=== PATIENT | female | born 1995 | race Two or more races ===

== ENCOUNTER 2024-10-20 18:32 | Emergency (ER) | payer MEDICAID, SELFPAY ==
--- NOTE | 2024-10-20 18:37 | EKG_ITS ---
[facility] (Formerly [facility]) Test Date: 2024-10-20 Pat Name: OTONIEL ROSS Department: Room: - Gender: Female Library Circulation Clerk: : 1995 Requested By: Mariya Carpio Order Number: [id number] Reading MD: Mariya Carpio Measurements Intervals [place] Rate: 79 P: 75 NC: 134 QRS: 82 QRSD: 91 T: 56 QT: 370 QTc: 426 Interpretive Statements SINUS RHYTHM POSSIBLE LEFT ATRIAL ENLARGEMENT [-0.1mV P WAVE IN V1/V2] Compared to ECG 11/30/2018 09:16:28 Sinus tachycardia no longer present Short NC interval no longer present T-wave abnormality no longer present /store/S0/[id number].pdf
[2024-10-20 18:54] VITALS: BP 121/82; PULSE 91; RESP 19; TEMP 36.9; O2SAT 99; BMI 25.4
--- NOTE | 2024-10-20 18:56 | XR_ITS ---
Examination: PA chest single view TECHNIQUE: Upright PA chest single view Exam date and time: October 20, 2024 1907 hours INDICATIONS: Onset chest pain beginning 3 days ago. FINDINGS: Normal heart size Lungs are clear. The osseous structures are intact IMPRESSION: No active disease
--- NOTE | 2024-10-20 18:57 | PD.EDRME ---
Rapid Medical Screening Exam [facility] Arrival date/time: 10/20/24 18:32 29F with history of psych presents to ED with 3 days of worsening L CP w/o fall/trauma and URI symptoms. Patient denies SOB. Chief Complaint: Chest Pain Vital signs: Vital Signs Temperature 98.4 F 10/20/24 18:54 Pulse Rate 91 10/20/24 18:54 Respiratory Rate 19 10/20/24 18:54 Blood Pressure 121/82 10/20/24 18:54 Pulse Oximetry (%) 99 10/20/24 18:54 Oxygen Delivery Method Room Air 10/20/24 18:54
[2024-10-20 19:37] LABS: Basophils # (Auto) 0.1 Thou/mm3 (0.0-0.2); Basophils % (Auto) 1 % (0-2.5); Eosinophils # (Auto) 0.1 Thou/mm3 (0.0-0.5); Eosinophils % (Auto) 1 % (0-10); Hematocrit 42.1 % (36.0-46.0); Hemoglobin 14.3 g/dL (12.0-16.0); Immature Granulocytes % (Auto) 0 % (0-0); Immature Granulocytes Auto 0.02 Thou/mm3 (0.00-0.00); Lymphocytes # (Auto) 3.4 Thou/mm3 (1.0-4.8); Lymphocytes % (Auto) 35 % (10-50); Mean Corpuscular Hemoglobin 30.9 pg (25.0-35.0); Mean Corpuscular Volume 91 fL (80-100); Monocytes # (Auto) 0.7 Thou/mm3 (0.0-0.8); Monocytes % (Auto) 7 % (0-12); Neutrophils # (Auto) 5.4 Thou/mm3 (1.8-7.7); Neutrophils % (Auto) 56 % (37-80); Nucleated Red Blood Cell % 0 /100 WBC (0); Platelet Count 395 Thou/mm3 (140-440); RDW Standard Deviation 40.9 fL (36.4-46.3); Red Blood Count 4.63 Miln/mm3 (4.00-5.20); White Blood Count 9.7 Thou/mm3 (3.6-11.0)
[2024-10-20 19:51] LABS: Alanine Aminotransferase 13 U/L (10-49); Albumin, Serum 5.1 gm/dL (3.5-5.0); Albumin/Globulin Ratio 1.8 (1.2-2.2); Alkaline Phosphatase 67 U/L (46-116); Anion Gap 8 (7-16); Aspartate Amino Transferase 11 U/L (0-34); BUN/Creatinine Ratio 11 Ratio (12-20); Bilirubin,Total 0.8 mg/dL (0.3-1.2); Blood Urea Nitrogen 9 mg/dL (9-23); Carbon Dioxide 25.6 mMol/L (20.0-31.0); Chloride 102 mMol/L (98-107); Creatinine (Component) 0.8 mg/dL (0.6-1.3); Estimated Creatinine Clearance 90.5 mL/min (>60); Globulin 2.8 gm/dL (2.3-3.5); Glucose 78 mg/dL (74-106); Osmolality,Calculated 269 (275-295); Potassium 4.4 mMol/L (3.4-5.1); Sodium 136 mMol/L (136-145); Total Protein 7.9 gm/dL (5.7-8.2); Troponin I < 0.002 ng/mL (0.0-0.045); eGFR > 60 See Note
[2024-10-20 21:03] LABS: HCG Qualitative,Urine Negative
[2024-10-20 21:04] LABS: Amphetamine/Methamp Scrn,U Negative (Negative); Barbiturate Screen,Urine Negative (Negative); Benzodiazepines Screen,Urine Negative (Negative); Benzoylecgonine Screen, Ur Negative (Negative); Fentanyl Screen,Urine Negative (Negative); Opiate Screen,Urine Negative (Negative); THC Screen,Urine Positive (Negative)
--- NOTE | 2024-10-21 00:45 | PD.EDCHEST ---
ED Chest Pain RME/HPI General Chief Complaint: Chest Pain Stated Complaint: Chest pain X 3 days Arrival date/time: 10/20/24 18:32 Limitations: no limitations RME / HPI RME / HPI narrative: 10/20/24 18:32 29F with history of psych presents to ED with 3 days of worsening L CP w/o fall/trauma and URI symptoms. Patient denies SOB. --- Dr. Yu's Main ED Evaluation: 29yo female presents to the ED for complaints of palpitations. Patient states she's been having palpitations and left-sided chest pain when she sleeps. She states it does not worsen when she breathes or when she moves. She states she smokes marijuana. She denies any shortness of breath, fever, chills, N/V or any other associated symptoms. No known allergies. Related Data Home Medications ?Medication ?Instructions ?Recorded ?Confirmed prenat.vits,lakshmi,[id number] 1 tab PO QDAY 05/22/21 08/15/21 Previous Rx's ?Medication ?Instructions ?Recorded sertraline 25 mg tablet 50 mg (2 x 25 mg) PO QDAY #30 tabs 12/04/18 docusate sodium 100 mg capsule 100 mg PO BID #40 caps 08/17/21 (Colace) hydrocodone 5 mg-acetaminophen 325 1 tab PO Q6H PRN pain (scale score 08/17/21 mg tablet 7-10) #20 tabs cyclobenzaprine 5 mg tablet 5 mg PO TID PRN muscle spasm #30 06/07/23 tabs naproxen 500 mg tablet 500 mg PO BID PRN pain #30 tabs 06/07/23 methylprednisolone 4 mg tablets in 4 mg PO .as directed #21 tabs 12/20/23 a dose pack (Medrol (Arpit)) triamcinolone acetonide 0.025 % 1 applic topical BID PRN itching 12/20/23 topical cream #80 grams Allergies Allergy/AdvReac Type Severity Reaction Status Date / Time No Known Allergies Allergy Verified 08/15/21 20:31 Review of Systems Review of Systems Systems Reviewed: All systems reviewed, normal except as documented Past Medical History Past Medical History NEUROLOGIC: Negative Neurological Disorders or Seizures CARDIAC: Negative Cardiac Disorders or Congestive Heart Failure RESPIRATORY: Negative Chronic Obstructive Pulmonary Disease (COPD) or Asthma GASTROINTESTINAL: Negative Gastrointestinal Disorders, Hepatitis or Colorectal Cancer GENITOURINARY: Negative Genitourinary Disorders or Renal Disease REPRODUCTIVE: Negative Breast Cancer or Pelvic Inflammatory Disease MUSCULOSKELETAL: Negative Musculoskeletal Disorders or Bone Cancer ENDOCRINE: Negative Endocrine Disorders, Diabetes Mellitus Type 1 or Diabetes Mellitus Type 2 HEMATOLOGIC: Negative Blood Disorders or Sickle Cell Disease PSYCHO/SOCIAL: Positive Psychiatric Problems, Depression, Anxiety, Self-Mutilation and Post Traumatic Stress Disorder OTHER HISTORY: Negative Hospitalization, Autoimmune Disease, Down Syndrome, Developmental Delay, Shingles, Falls, Blood Transfusions, Blood Transfusion Reaction, Anesthesia Reactions, Organ Transplant, Chemotherapy, Radiation Therapy, Hyperbaric Therapy, MRSA, VRSA, Vancomycin-Resistant Enterococci, Human Immunodeficiency Virus (HIV), Chicken Pox, Measles, Mumps, Rubella ([place]an Measles), Pertussis, Clostridium Difficile, Cancer, Breast Cancer, Cervical Cancer, Colorectal Cancer, Lung Cancer or Ovarian Cancer Family History FAMILY HISTORY: Positive Family Cardiac Disorders; Negative Family Neurologic Problems, Family Psychiatric Problems, Family Respiratory Disorders, Family Gastrointestinal Problems, Family Cancer, Family Surgery or Family Anesthesia Reaction Surgical History SURGICAL: Positive Section; Negative Cardiac Surgery, Endocrine Surgery, Thyroidectomy, Ear Surgery, Abdominal Surgery or Organ Transplant Social History SMOKING STATUS: Never smoker SUBSTANCE USE: does not use ED Exam General Limitations: Present no limitations General appearance: Present alert and in no apparent distress Head Head exam: Present atraumatic Eye Eye exam: Present normal appearance, PERRL and EOMI ENT ENT exam: Present normal exam, normal oropharynx and mucous membranes moist Neck Neck exam: Present normal inspection, full ROM and trachea midline Chest Chest inspection: Present normal inspection and symmetric chest wall rise Respiratory Respiratory exam: Present normal lung sounds bilaterally Cardiovascular Cardiovascular exam: Present regular rate, normal rhythm and normal heart sounds Abdominal Exam Abdominal exam: Present soft and normal bowel sounds Extremities Exam Extremities exam: Present normal inspection and full ROM Back Exam Back exam: Present normal inspection and full ROM Neurological Exam Neurological exam: Present alert, oriented X3 and CN II-XII intact Psychiatric Psychiatric exam: Present normal affect and normal mood Skin Skin exam: Present warm, dry, intact and normal color Course Course Course Narrative: CXR is ordered for determining the etiology of chest pain. Quality Measures none Orders Category Date Time Status EKG (ED ONLY) *Do not use* NOW Care 10/20/24 18:37 Completed EKG (ED Only) Stat Exams 10/20/24 18:37 Draft XR chest 1V portable Stat Exams 10/20/24 18:56 Completed CBC Stat Lab 10/20/24 19:01 Completed Comprehensive Metabolic Panel Stat Lab 10/20/24 19:01 Completed Drug Screen,Urine Stat Lab 10/20/24 20:05 Completed HCG Qualitative,Urine Stat Lab 10/20/24 20:05 Completed Troponin I Stat Lab 10/20/24 19:01 Completed Ketorolac Inj [Toradol Inj] Med 10/21/24 02:10 Discontinued 30 mg IM X1 ONE Vital Signs Vital signs: Vital Signs Temperature 98.4 F 10/20/24 18:54 Pulse Rate 91 10/20/24 18:54 Respiratory Rate 19 10/20/24 18:54 Blood Pressure 121/82 10/20/24 18:54 Pulse Oximetry (%) 99 10/20/24 18:54 Oxygen Delivery Method Room Air 10/20/24 18:54 Pulse ox is 99% on room air, which is normal according to my interpretation. Chest Pain Patient data External records reviewed:: [facility] previous records (Per chart review, patient was seen here on 12/20/23 for dermatitis.) Clinical information provided by:: patient Social determinants that could affect healthcare access:: substance use (smokes marijuana) Patient has the following chronic illnesses:: anxiety, depression How is presenting disease/condition affected by chronic disease/condition?: uneffected by Evaluation data The following diagnostics were reviewed and interpreted by me:: lab results, radiology exam(s) and EKG tracing(s) Lab and/or radiology exams considered but not ordered:: none Interpretation Summary: CBC is normal, CMP is normal, Troponin is normal, HCG is negative, UDS is positive for marijuana, according to my interpretation. EKG done at 1852, NSR, rate of 79, normal intervals, normal axis, no ST elevations or depressions, QTc: 426, no STEMI, according to my interpretation. ------ I have personally reviewed the radiology data and agree with the radiologist's interpretation below: [facility] Report Signed Patient: OTONEIL ROSS. Record#: [id number] Birthdate: 1995 Age/Sex: 29 / F Location: [facility] Attending Dr: Ordering Physician: Chon Jay PA-C Date of Service: 10/20/24 Procedure(s): XR chest 1V portable Accession Number(s): [id number] cc: Jenna Ward; Jus Rossi MD; Chon Jay PA-C~ Examination: PA chest single view TECHNIQUE: Upright PA chest single view Exam date and time: October 20, 2024 1907 hours INDICATIONS: Onset chest pain beginning 3 days ago. FINDINGS: Normal heart size Lungs are clear. The osseous structures are intact IMPRESSION: No active disease Dictated By: Jus Rossi MD Signed By: <Electronically signed by Jus Rossi MD in OV> 10/20/24 1916 Medications / Prescriptions Medications or Prescriptions considered but not ordered:: none Medication administrations:: Medication Administration History Ketorolac Tromethamine (Ketorolac Inj 60 Mg/2 Ml Vial) 30 mg IM X1 ONE Stop: 10/21/24 02:11 see above, if any Consultations Consultation(s) initiated? (list below): No Diagnosis Chest Pain Differential Diagnosis: atypical chest pain and other (musculoskeletal pain, pneumonia, PE) Most likely diagnosis given after review of the tests above:: see below Admission Indicated Admission indicated?: not indicated Explain why admission is indicated or not indicated:: Patient does not have any risk factors for PE. She does not smoke tobacco nor is she on control. Admission is not indicated at this time. Admission Request Was there a request for admission?: No Disposition Plan Disposition Plan: Discharge Discharge Attestation Discharge Attestation: The patient and all family members were given an opportunity to ask questions and understood the discharge instructions. Discharge instructions specifically effects, indications for sooner follow up or return to the emergency department, and the expected course of current diagnosis. Patient condition: Stable Discharge Plan Plan Patient Disposition: HOME (Self Care) Patient condition on transfer: Stable Prescriptions/Referrals Prescriptions/Med Rec: No Action hydrocodone-acetaminophen 5-325 mg tablet 1 tab PO Q6H MDD 4 PRN (Reason: pain (scale score 7-10)) Qty: 20 0RF docusate sodium [Colace] 100 mg capsule 100 mg PO BID Qty: 40 0RF sertraline 25 mg Tablet 50 mg PO QDAY Qty: 30 0RF prenat.vits,lakshmi,[id number] Tablet 1 tab PO QDAY naproxen 500 mg tablet 500 mg PO BID PRN (Reason: pain) Qty: 30 0RF cyclobenzaprine 5 mg tablet 5 mg PO TID PRN (Reason: muscle spasm) Qty: 30 0RF methylprednisolone [Medrol (Arpit)] 4 mg tablets,dose pack 4 mg PO .as directed Qty: 21 0RF triamcinolone acetonide 0.025 % cream 1 applic topical BID PRN (Reason: itching) Qty: 80 0RF Referrals: Jenna Ward FNP [Primary Care Provider] - In 1 week Problem List Clinical Impression: Palpitations, Atypical chest pain Patient/Caregiver Discharge Instructions Education Materials: ED Chest Pain, Uncertain Cause Print Language: [place] Stand Alone Forms: [facility] Award Info., Patient Portal Info Letter
[2024-10-21] MEDS: KETOROLAC INJ 60 MG/2 ML VIAL 30 MG IM (02:16)
== END 2024-10-21 02:44 | disposition home or self-care (01) ==
PROVIDERS: Physician Assistant; Emergency Provider Emergency Medicine; PCP Nurse Practitioner Family
DX: R07.89 Other chest pain (principal); R00.2 Palpitations; R94.31 Abnormal electrocardiogram [ECG] [EKG]
CPT/HCPCS: 36415; 71045; 80053; 80307; 81025; 84484; 85025; 93005; 96372; 99283; J1885